=== PATIENT | male | born 1935 | race Caucasian/White ===

== ENCOUNTER → 2021-07-11 | Outpatient (REF) | payer MEDICARE, OTHER ==
[2021-07-11 11:40] LABS: ALBUMIN 4.4 GM/DL (3.2-5.2); ALT/SGPT 36 U/L (12-78); BILIRUBIN,TOTAL 0.6 MG/DL (0.2-1.0); BLOOD UREA NITROGEN 24 MG/DL (7-18); CALCIUM LEVEL 8.9 MG/DL (8.8-10.2); CARBON DIOXIDE LEVEL 28 MEQ/L (21-32); CHLORIDE LEVEL 108 MEQ/L (98-107); CREATININE FOR GFR 1.15 MG/DL (0.70-1.30); GLOMERULAR FILTRATION RATE > 60.0 (>35); GLUCOSE, FASTING 116 MG/DL (70-100); POTASSIUM SERUM 3.8 MEQ/L (3.5-5.1); SODIUM LEVEL 142 MEQ/L (136-145); TOTAL PROTEIN 7.5 GM/DL (6.4-8.2)
[2021-07-11 11:44] LABS: BASO # 0.1 10^3/uL (0.0-0.2); BASO % 1.1 % (0.0-1.0); EOS % 0.5 % (0.0-3.0); HEMATOCRIT 46.8 % (42.0-52.0); HEMOGLOBIN 14.6 g/dl (13.5-17.5); LYMPH # 1.7 10^3/uL (1.5-5.0); LYMPH % 31.6 % (24.0-44.0); MEAN CORPUSCULAR HEMOGLOBIN 28.4 pg (27.0-33.0); MEAN CORPUSCULAR HGB CONC 31.2 g/dl (32.0-36.5); MEAN CORPUSCULAR VOLUME 91.1 fl (80.0-96.0); MONO # 1.1 10^3/uL (0.0-0.8); MONO % 20.8 % (2.0-8.0); NEUTROPHILS # 2.5 10^3/uL (1.5-8.5); NEUTROPHILS % 45.1 % (36.0-66.0); RED BLOOD COUNT 5.14 10^6/uL (4.30-6.10); WHITE BLOOD COUNT 5.5 10^3/uL (4.0-10.0)
[2021-07-11 12:09] LABS: PLATELET COUNT, AUTOMATED 76 10^3/uL (150-450)
[2021-07-11 12:13] LABS: ERYTHROCYTE SEDIMENTATION RATE 6 mm/hr (0-20)
== END ==
LOC: M SFHCRHEU 08:43
PROVIDERS: ATTEND Internal Medicine Rheumatology
DX: M25.551 Pain in right hip (principal); M25.511 Pain in right shoulder; R76.8 Other specified abnormal immunological findings in serum
CPT/HCPCS: 80053; 85025; 85049; 85055; 85652; 86140; G0463

== ENCOUNTER → 2023-10-21 | Outpatient (CLI) | payer MEDICARE, BC, OTHER | LOC: M PLAIMG 12:02 | PROVIDERS: ATTEND Nurse Practitioner Family | DX: R55 Syncope and collapse (principal) ==

== ENCOUNTER → 2024-10-07 | Outpatient (CLI) | payer MEDICARE, BC ==
[~2024-10-07] MED LIST: ISOVUE-370 76% 100ML VIAL As Ordered ONE
== END ==
LOC: M RAD 12:34
PROVIDERS: ATTEND Nurse Practitioner
DX: R06.00 Dyspnea, unspecified (principal)
CPT/HCPCS: 71275; Q9967

== ENCOUNTER → 2025-03-17 | Outpatient (CLI) | payer MEDICARE, BC | LOC: M RAD 07:12 | PROVIDERS: ATTEND Emergency Medicine | DX: M54.16 Radiculopathy, lumbar region (principal); M43.16 Spondylolisthesis, lumbar region; G95.81 Conus medullaris syndrome; M47.817 Spondylosis without myelopathy or radiculopathy, lumbosacral region; M51.26 Other intervertebral disc displacement, lumbar region ==